=== PATIENT | male | born 1990 | race Two or more races ===

== ENCOUNTER 2016-11-01 10:12 | Emergency (ER) | payer MEDICAID ==
--- NOTE | 2016-11-01 11:52 | RAD ---
EXAMINATION:CHEST - 2 VIEWS CLINICAL INDICATION: Cough for 2 weeks. COMPARISON:none FINDINGS: The cardiomediastinal silhouette is within normal limits. There is no adenopathy identified. There is no pleural effusion. The lungs are clear. The osseous structures are unremarkable for age. IMPRESSION: Negative PA and lateral views of the chest. No acute cardiopulmonary process is identified.
[2016-11-01] MEDS ORDERED: ACETAMINOPHEN 325 MG TABLET ONE (12:48)
== END 2016-11-01 13:03 | disposition home or self-care (01) ==
LOC: ED 10:12
DX: B34.9 Viral infection, unspecified (principal)
CPT/HCPCS: 71020; 99283 ×2; A9270